=== PATIENT | male | born 1955 | race Two or more races ===

== ENCOUNTER → 2019-09-24 | Emergency (ER) | payer BC ==
[~2019-09-24] VITALS: Ht 185.4 cm; Wt 119.7 kg
[~2019-09-24] MED LIST: IBUPROFEN 400 MG TAB PO ONE; ONDANSETRON ODT 4 MG TAB PO ONE
[2019-09-24 14:53] VITALS: BP 143/72
== END | disposition home or self-care (01) ==
LOC: ER 13:52
DX: U07.1 COVID-19 (principal); K52.9 Noninfective gastroenteritis and colitis, unspecified; J06.9 Acute upper respiratory infection, unspecified; M10.9 Gout, unspecified; E78.5 Hyperlipidemia, unspecified; Z88.1 Allergy status to other antibiotic agents
CPT/HCPCS: 71045; 87070; 87635; 87804; 87880; 93005; 99285; Q0162

== ENCOUNTER 2023-09-09 13:49 | Emergency (ER) | payer BC ==
[~2023-09-09] VITALS: Ht 182.9 cm; Wt 118.5 kg
[2023-09-09 14:11] LABS: Basophils # (auto) 0.1 10 ^3/uL (0-0.2); Basophils % (auto) 0.9 % (0.0-2.0); Eosinophils # (auto) 0.1 10 ^3/uL (0-0.8); Hematocrit 44.7 % (41.0-53.0); Hemoglobin 15.6 g/dL (13.5-17.5); Lymphocytes # (auto) 2.4 10 ^3/uL (0.4-5.4); Lymphocytes % (auto) 31.1 % (10.0-50.0); Mean Corpuscular Volume 82.8 fL (80.0-100.0); Monocytes # (auto) 0.6 10 ^3/uL (0-1.3); Monocytes % (auto) 7.5 % (0.0-12.0); Neutrophils # (auto) 4.5 10 ^3/uL (1.6-8.6); Neutrophils % (auto) 59.5 % (37.0-80.0); Nucleated Red Blood Cells % 0.2 %; Red Cell Distribution Width 14.9 % (11.8-14.3); White Blood Cell 7.6 10^3/uL (4.4-10.8)
[2023-09-09 14:30] LABS: Urine Bacteria None Seen /hpf (None Seen)
[2023-09-09 14:42] LABS: Urine Blood Negative /uL (Negative); Urine Clarity Clear (Clear); Urine Color Light-Yellow (Yellow); Urine Protein, UAD Negative (Negative); Urine Specific Gravity 1.015 (1.001-1.035); Urine Urobilinogen Normal (Negative); Urine WBC <1 /hpf (0 - 3)
[2023-09-09 14:46] LABS: Alanine Aminotransferase 21 U/L (7-40); Albumin 4.3 g/dL (3.2-4.8); Alkaline Phosphatase 64 U/L (46-116); Anion Gap 7 (5-15); Aspartate Aminotransferase 15 U/L (13-40); BUN/Creatinine Ratio 10.1 (10.0-20.0); Bilirubin, Total 1.4 mg/dL (0.2-1.0); Blood Urea Nitrogen 11 mg/dL (9-23); Calcium 9.8 mg/dL (8.7-10.4); Carbon Dioxide 24 mmol/L (20-30); Chloride 108 mmol/L (98-107); Glucose 102 mg/dL (74-106); Potassium 4.3 mmol/L (3.5-5.1); Sodium 139 mmol/L (136-145); Total Protein 6.6 g/dL (5.7-8.2)
[2023-09-09 20:55] VITALS: BP 105/60; RESP 20; TEMP 97.9; O2SAT 96
[2023-09-09 21:00] VITALS: PULSE 54
== END 2023-09-09 21:02 | disposition home or self-care (01) ==
LOC: ER 13:49
DX: R07.89 Other chest pain (principal); E78.5 Hyperlipidemia, unspecified; Z88.1 Allergy status to other antibiotic agents
CPT/HCPCS: 36415; 80053; 81001; 84484; 85025; 93005

== ENCOUNTER → 2024-10-08 | Day surgery (SDC) | payer MEDICARE, BC ==
[2024-10-05 11:35] LABS: Hematocrit 41.8 % (41.0-53.0); Hemoglobin 14.7 g/dL (13.5-17.5); Mean Corpuscular Hemoglobin 29.2 pg (28.0-32.0); Mean Corpuscular Volume 82.8 fL (80.0-100.0); Nucleated Red Blood Cells % 0.1 %
[2024-10-05 11:48] LABS: INR 1.01 (0.9-1.15); Partial Thromboplastin Time 26.8 SEC (24.5-34.5); Prothrombin Time 10.7 sec (9.3-11.8)
[2024-10-05 11:51] LABS: Urine Protein, UAD Negative (Negative)
[2024-10-05 12:10] LABS: Alanine Aminotransferase 18 U/L (7-40); Albumin 4.4 g/dL (3.2-4.8); Alkaline Phosphatase 63 U/L (46-116); Anion Gap 6 (5-15); BUN/Creatinine Ratio 10.4 (10.0-20.0); Blood Urea Nitrogen 13 mg/dL (9-23); Calcium 10.1 mg/dL (8.7-10.4); Carbon Dioxide 31 mmol/L (20-31); Chloride 105 mmol/L (98-107); Glucose 92 mg/dL (74-106); Potassium 4.2 mmol/L (3.5-5.1); Sodium 142 mmol/L (136-145); Total Protein 6.4 g/dL (5.7-8.2)
[2024-10-05 12:11] LABS: Bilirubin, Total 1.1 mg/dL (0.2-1.0)
[~2024-10-08] VITALS: Ht 185.4 cm; Wt 122.5 kg
--- NOTE | 2024-10-08 11:27 | DVHHP2 ---
GI H&P Pre-Op Assessment Date: 10/08/24 Chief complaint: melena HPI: per clinic note Past medical history: per clinic note Past surgical history: per clinic note Family history: per clinic note Physical exam: General: NAD, AAOX3 HEENT: PERRL, no scleral icterus, normal hearing, gums without lesions or bleeding, oropharynx clear without erythema or exudate. Neck: Supple without enlargement of the thyroid, or lymphadenopathy. Chest: Normal size and shape, no tenderness, lung rodgers clear to auscultation and percussion, nonlabored breathing. Heart: RRR, no murmur Abdomen: non-distended, no tenderness to palpation, +BS, no hepatosplenomegaly Extremities: no edema Neurological: CN II-XII intact, sensation intact in all extremities, 5+ strength in all extremities Skin: No rashes, No jaundice Assessment: - melena Plan: - EGD - Risks (bleeding, infection, perforation, reaction to sedation medications and cardiopulmonary arrest) and benefit of the procedure were explained to patient. Patient agrees to undergo the procedure. CANDELARIO GARCIA MD Oct 08, 2024 11:27
[2024-10-08 11:54] VITALS: PULSE 59; RESP 16; TEMP 97.9; O2SAT 98
--- NOTE | 2024-10-08 11:56 | DVHDS2 ---
Physician Discharge Progress N Final Diagnosis: Duodenitis. Operations or Procedures: Operations or Procedures EGD with cold biopsies Condition on Discharge: Good Disposition: Home Discharge Instructions: Diet: Regular Activity: No Restrictions, As Tolerated Medications: Resume previous home medications Follow Up Care: Discharge Statement: "Patient was advised to return to the ER or call 911 if any headaches, dizziness, shortness of breath, chest pain, abdominal pain, bleeding, fevers, or worsening of medical condition. Patient was counseled about treatment plan, medications, possible side effects, patientverbalized understanding. All questions were answered to the best of my ability. This discharge took greater then 30 minutes in planning, reviewing documentation, counseling the patient, and discussing with other team members." CANDELARIO GARCIA MD Oct 08, 2024 11:56
--- NOTE | 2024-10-08 11:56 | DVHOP2 ---
Operative Report DATE OF OPERATION: 10/08/24 PROCEDURE: Upper Endoscopy. PREOPERATIVE INDICATION: The patient is a 69 -year-old male undergoing endoscopy for melena. POSTOPERATIVE DIAGNOSES: 1. Slight duodenitis in the duodenal bulb. 2. Gastric biopsies were obtained to evaluate for H pylori. PROCEDURE PERFORMED BY: Darius Yu SCOPE: Olympus videoendoscope. ASA CLASS: 3 PREOPERATIVE MEDICATIONS: MAC with [employer] PROCEDURE IN DETAIL: After obtaining an informed consent, the patient was placed on left lateral decubitus position. The patient was then sedated with the above medications. A bite block was placed between his teeth. The endoscope was then passed through the oropharynx, into the esophagus, and through the stomach and pylorus up to the second and third part of the duodenum. There was slight duodenitis in the duodenal bulb. Duodenal biopsy obtained using cold forceps. The stomach was normal in appearance. Gastric biopsies were obtained using cold forceps. The GE junction was normal in appearance at 42 cm. The esophagus was normal in appearance. The endoscope was then withdrawn. The patient tolerated the procedure well without difficulty. COMPLICATIONS : None SPECIMENS: Gastric biopsies, duodenal biopsies DISPOSITION: D/C to home PLAN: 1. Await for biopsy result DARIUS YU MD Oct 08, 2024 11:56
[2024-10-08 11:59] VITALS: PULSE 49; RESP 18; O2SAT 98
[2024-10-08 12:04] VITALS: PULSE 53; RESP 12; O2SAT 95
[2024-10-08 12:41] VITALS: BP 95/59; PULSE 46; RESP 12; O2SAT 100
== END | disposition home or self-care (01) ==
LOC: GI 09:18
PROVIDERS: ATTEND Internal Medicine Gastroenterology
DX: Z12.11 Encounter for screening for malignant neoplasm of colon (principal); K57.30 Diverticulosis of large intestine without perforation or abscess without bleeding; K29.50 Unspecified chronic gastritis without bleeding; K31.89 Other diseases of stomach and duodenum; K29.80 Duodenitis without bleeding; R10.10 Upper abdominal pain, unspecified; R11.0 Nausea; J44.9 Chronic obstructive pulmonary disease, unspecified; E66.9 Obesity, unspecified; Z68.35 Body mass index [BMI] 35.0-35.9, adult; Z98.890 Other specified postprocedural states; Z88.1 Allergy status to other antibiotic agents
CPT/HCPCS: 36415; 43239; 80053; 81001; 85025; 85610; 85730; 88305; 88342; G0121; J7030